=== PATIENT | male | born 2000 | race Two or more races ===

== ENCOUNTER 2024-06-15 21:45 | Emergency (ER) | payer OTHER, SELFPAY ==
[2024-06-15 22:52] LABS: Influenza A QL RT-PCR Positive (Negative); Influenza B QL RT-PCR Negative (Negative); RSV RNA, RT-PCR Negative (Negative); SARS-CoV-2 RNA PCR Negative (Negative)
--- NOTE | 2024-06-15 23:44 | PC.NURSE ---
pt wheeled to exit by nephew. no distress noted.
--- NOTE | 2024-06-16 02:17 | ED_ITS ---
HPI - URI/Sore Throat General Chief Complaint: Upper Respiratory Infection Stated Complaint: fever, headache Time Seen by Provider: 06/16/24 02:17 History of Present Illness HPI Narrative: 23-year-old male presents to the emergency department for subjective fever, chills, nausea and headache for 1 day. Denies abdominal pain, nausea or vomiting. he presents with his remains/ cousin who is here for the same symptoms. Review of Systems Review of Systems: All systems reviewed & are unremarkable except as noted in HPI and below Exam Narrative: GENERAL: Well-appearing, well-nourished, and in no acute distress. HEAD: Normocephalic, atraumatic. EYES: PERRLA and EOMI. ENT: Nares clear, no rhinorrhea or epistaxis. Mucous membranes moist. Bilateral TMs are ball nonbulging with normal canals. Posterior pharynx without erythema or edema, no exudates. NECK: Supple. CHEST: Clear to auscultation. No respiratory distress. HEART: Regular rate and rhythm. No murmur heard. Normal peripheral pulses. EXTREMITIES: Normal range of motion. No edema. SKIN: Warm, dry, no rash. NEURO: No focal deficits. Alert and oriented x3 Course Vital Signs Vital signs: Vital Signs Oxygen Delivery Room Air 06/16/24 02:08 Oxygen Delivery Room Air 06/16/24 02:08 MDM - URI/Sore Throat MDM Narrative Medical decision making narrative: 23-year-old male presents to emergency department for your eye symptoms including body aches, headache, chills and subjective fever for 1 day. Vitals with tachycardia of 112. COVID, flu and RSV test obtained by nursing staff which is positive for influenza A. This is consistent with patient's symptoms. he was given a dose of Tylenol and ibuprofen in the ED, Tylenol, ibuprofen and Tamiflu sent to pharmacy. Discussed increased fluid intake and quarantine. Strict ED return precautions discussed. He is agreeable with the plan verbalized understanding. Discharged in stable condition. Lab Data Labs: Lab Results 06/15/24 Range/Units 22:08 Influenza A (RT-PCR) Positive A (Negative) Influenza B (RT-PCR) Negative (Negative) RSV (RT-PCR) Negative (Negative) SARS-CoV-2 RNA (RT-PCR) Negative (Negative) Discharge Plan Discharge Clinical Impression: Influenza A Patient Disposition: Home, Self-Care Condition: Stable Instructions: Antibiotic Form, Influenza (ED) Additional Instructions: you were evaluated in the emergency department for subjective fever, chills, headache and body aches. He tested positive for the flu. Please rest and take Tylenol and ibuprofen as directed. Drink plenty of fluids including water, Gatorade and Pedialyte. Return to the emergency department if you develop a fev er of 100.4 or greater that is not responsive to Tylenol or ibuprofen, you are unable to tolerate food or fluids, or other concerning symptoms. Prescriptions: New oseltamivir [Tamiflu] 75 mg capsule 75 mg PO Q12H 5 Days Qty: 10 0RF acetaminophen 500 mg capsule 1,000 mg PO Q6H PRN (Reason: pain) Qty: 30 0RF ibuprofen 800 mg tablet 800 mg PO TID PRN (Reason: pain) Qty: 20 0RF Follow-up/Referrals: PHYSICIAN NOT ON STAFF,NONSTAFF [Primary Care Provider] - Stand Alone Forms: Work/School Release IP
[2024-06-16] MEDS: IBUPROFEN 400 MG TABLET 800 MG PO (02:43)
[2024-06-16] MEDS: ACETAMINOPHEN 500 MG TABLET 1000 MG PO (02:43)
[2024-06-16 02:50] VITALS: BP 122/90; PULSE 112; RESP 20; TEMP 37.8; O2SAT 97
== END 2024-06-16 02:52 | disposition home or self-care (01) ==
LOC: ANHED 06-16 02:45
PROVIDERS: Family Medicine; Emergency Provider Physician Assistant
DX: J10.1 Influenza due to other identified influenza virus with other respiratory manifestations (principal)
CPT/HCPCS: 87637; 99283; A9270